=== PATIENT | male | born 1955 | race Caucasian/White ===

== ENCOUNTER 2020-03-29 07:07 | Day surgery (SDC) | payer OTHER ==
[2020-03-26 10:08] LABS: BASOPHILS % (AUTO) 0.4 % (0-1); EOSINOPHILS # (AUTO) 0.1 X10'3 (0-0.9); EOSINOPHILS % (AUTO) 0.9 % (0-6); LYMPHOCYTES # (AUTO) 2.2 X10'3 (1.1-4.8); LYMPHOCYTES % (AUTO) 32.5 % (21-51); MEAN CORPUSCULAR HGB CONC 32.7 g/dL (33.0-36.5); MEAN CORPUSCULAR VOLUME 88.5 FL (78-98); MEAN PLATELET VOLUME 7.2 FL (7.4-10.4); MONOCYTES # (AUTO) 0.7 X10'3 (0-0.9); MONOCYTES % (AUTO) 9.8 % (2-12); NEUTROPHILS # (AUTO) 3.7 X10'3 (1.8-7.7); NEUTROPHILS % (AUTO) 56.4 % (42-75); PRE OP HEMATOCRIT 45.1 % (42.0-52.0); PRE OP HEMOGLOBIN 14.8 g/dL (14.0-17.9); PRE OP PLATELET COUNT 247 X10'3 (140-440); RED BLOOD COUNT 5.09 X10'6 (4.70-6.10); RED CELL DISTRIBUTION WIDTH 15.1 % (11.5-14.5)
[2020-03-26 10:34] LABS: ALBUMIN 3.8 G/DL (3.4-5.0); ALBUMIN/GLOBULIN RATIO 1.2 (1.1-1.5); ALKALINE PHOSPHATASE 100 IU/L (46-116); BLOOD UREA NITROGEN 16 MG/DL (7-18); BUN/CREATININE RATIO 15.1 (5.4-32.0); CALCIUM 8.9 MG/DL (8.5-10.1); CHLORIDE 110 MMOL/L (99-107); CREATININE 1.06 MG/DL (0.60-1.10); PRE OP ALT 20 U/L (30-65); PRE OP ANION GAP 3 (8-16); PRE OP AST 25 U/L (10-37); PRE OP BILIRUB, TOTAL 0.3 MG/DL (0.0-1.0); PRE OP GLUCOSE 102 MG/DL (70-104); PRE OP POTASSIUM 4.6 MMOL/L (3.4-5.1); PRE OP SODIUM 143 MMOL/L (135-145); TOTAL CARBON DIOXIDE 29.6 MMOL/L (24-32); eGFR 71 ML/MIN
[2020-03-29] VITALS (13 sets, daily range): BP systolic 124–149; BP diastolic 70–100
[~2020-03-29] VITALS: Ht 193 cm; Wt 110.8 kg
[~2020-03-29 07:07] MED LIST: ALBU2.5V12 NEB; ATOR40TA PO; ATRIN INH; BUPIVAcaine/PF 2.5 mg/ml (0.25%) 30ml vial ONE; LIDOcaine 1% 30ml preserv. free vial ONE; TRAZ-256 PO; albuterol 2.5 MG/3 ML nebule NEB ONE; cefazolin/dext.iso 2gm/50ml 50 ML IV ONE; famotidine 20mg tablet PO ONE; ringers solution, lacted 1,000 ML IV SCH
[2020-03-29] MEDS ORDERED: midazolam 2 mg/2 ml injection ONE (09:21)
[2020-03-29] MEDS ORDERED: fentaNYL /PF 50mcg/ml 5ml ampule ONE (09:21)
[2020-03-29] MEDS ORDERED: sevoflurane 250ml liquid IH ONE (09:26)
[2020-03-29] MEDS ORDERED: glycopyrrolate 0.2mg/ml inj ONE (10:19)
[2020-03-29] MEDS ORDERED: LIDOcaine 2% (20mg/ml) 5ml vial ONE (10:19)
[2020-03-29] MEDS ORDERED: propofol inj 20 ML IV ONE (10:19)
[2020-03-29] MEDS ORDERED: dexamethasone sod phosphate 4mg/ml inj. ONE (10:19)
[2020-03-29] MEDS ORDERED: neostigmine methylsulfate 1 MG/ML 10ml vial ONE (10:19)
[2020-03-29] MEDS ORDERED: ondansetron/PF 4mg/2ml inj ONE (10:19)
[2020-03-29] MEDS ORDERED: rocuronium 10mg/ml inj IV ONE (10:19)
[2020-03-29] MEDS ORDERED: ePHEDrine 50MG/ML INJ. ONE (10:20)
[2020-03-29] MEDS ORDERED: ringers solution, lacted 1,000 ML IV SCH (10:27)
[2020-03-29] MEDS ORDERED: meperidine/PF 25mg/ml syringe IV PRN ×2 (10:30)
[2020-03-29] MEDS ORDERED: morphine 4 MG/ML inj SYRINge IV PRN (10:30)
[2020-03-29] MEDS ORDERED: ondansetron/PF 4mg/2ml inj IV PRN (10:30)
[2020-03-29] MEDS ORDERED: morphine 2 MG/ML inj. syringe IV PRN (10:30)
[2020-03-29] MEDS ORDERED: proCHLORperazine 10 MG/2 ml inj IV PRN (10:30)
--- NOTE | 2020-03-29 11:05 | NUR ---
Received from OR via jessi, accompanied by Anesthesiologist Joanne and report given by Anesthesiolgist. VS stable mask to 10L sats 98%. Abdomen lap sites x3 with bandaids CDI. 20G right hand with LR at 100cc/hr and pulses palpable to lower extrems. Will monitor closely.
[2020-03-29] MEDS ORDERED: HYDROcodone/acetaminophen 5mg/325mg tablet PO PRN (11:15)
[2020-03-29] MEDS: meperidine/PF 25mg/ml syringe IV PRN ×2 (11:17→12:01)
--- NOTE | 2020-03-29 15:00 | NUR ---
Pt remains unable to void, bladder scan average of 410. Pt absolutely refused a catheter for fear of a UTI. PT states he's "feeling too psyched out to pee here", asks if he can be released home anyway. Dr Madrid was called and situation described. MD states he would prefer patient have either straight cath here or go home with leg bag prior to DC but if pt continues to absolutely refuse, then pt to receive further education on risks and if still unable to void then he must go back to local ER ([facility] in [place]) to get catheter or straight cath there. Will relay education to patient again.
--- NOTE | 2020-03-29 16:15 | NUR ---
After patient voided, he was discharged to vehicle without incident by wheelchair, IV dc'd. Abdomen bandaids remain CDI. Pt verbalized understanding of all DC instructions and took home pain script. I explained that he must still go to [facility] if unable to void later tonight and described risks of ruptured bladder and UTI if retention persisted again. He knows to follow up in 2 weeks.
== END 2020-03-29 16:15 | disposition home or self-care (01) ==
LOC: PAS 07:07
PROVIDERS: ATTEND Surgery
DX: K40.20 Bilateral inguinal hernia, without obstruction or gangrene, not specified as recurrent (principal); J44.9 Chronic obstructive pulmonary disease, unspecified; G47.33 Obstructive sleep apnea (adult) (pediatric); E78.00 Pure hypercholesterolemia, unspecified; Z79.899 Other long term (current) drug therapy; Z98.890 Other specified postprocedural states; Z96.641 Presence of right artificial hip joint; Z11.59 Encounter for screening for other viral diseases; Z82.61 Family history of arthritis; Z80.1 Family history of malignant neoplasm of trachea, bronchus and lung
CPT/HCPCS: 36415; 49650; 80053; 82948; 85025; 93005; C1781; J1100; J2001; J2175; J2250; J2270; J2405; J2704; J2710; J3010; J3490; J7120; U0003; A4215; A4618